=== PATIENT | male | born 2000 | race Caucasian/White ===

== ENCOUNTER 2024-03-07 15:20 | Outpatient (AMB) | payer OTHER, SELFPAY ==
--- NOTE | 2024-03-07 15:28 | MHC.PC.OV ---
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 Transferring care from [facility]. Medical records have been requested today. Manager Event Required: No Accompanied by: Self / Same As Patient Allergies No Known Allergies Allergy (Verified 03/07/24 15:37) Medication List - Last Reconciled 03/07/24 by Venkat Lawrence PA-C albuterol sulfate 90 mcg/actuation inhalation Tobacco use date assessed: 03/07/24 Dental Screening Dental Screen Date: 03/07/24 Did you have a dental visit in the last 12 months?: Yes Did you have a dental problem in the last 6 months where you did not have access to dental care?: No Was dental information given to patient?: Patient has dentist HPI COUNTY DIRECTOR/Sleep Apnea/Asthma HPI Details Patient is a 24-year-old male here today for a new patient visit. Patient's previous PCP was at [place] Patient has a past medical history significant for asthma and obesity. Concern--> he is concerned about having obstructive sleep apnea. He reports having daytime somnolence, chronic headaches and nighttime awakenings choking and difficulty breathing. He was been told he has apneic episodes during sleep. STOP BANG- questionnaire- moderate risk for obstructive sleep apnea. Also reports having random rash over his bilateral upper extremities that only seem to get worse when he is at work. Has tried [id number] antihistamines though have not been too effective. .. Asthma: Has been fairly well controlled with only p.r.n. use of his albuterol inhaler. Vaccines: Up-to-date with tetanus vaccine, COVID vaccines, Needs PCV. [facility] Social History (Updated 03/07/24 @ 15:44 by Venkat Lawrence PA-C) Housing: House Alcohol intake: current Alcohol intake frequency: holidays/special occasions only Alcohol type: beer Patient Tobacco Use Status: Never used Tobacco e-Cigarette/Vaping Use: Never Used service: No Current occupational status: employed Current occupation: [employer] Cognitive needs: No Hearing needs: No Vision needs: No Questionnaire PHQ-9 Over the last 2 weeks, how often have you been bothered by any of the following problems? 1. Little interest or pleasure in doing things: not at all 2. Feeling down, depressed, or hopeless: not at all 3. Trouble falling or staying asleep, or sleeping too much: not at all 4. Feeling tired or having little energy: not at all 5. Poor appetite or overeating: not at all 6. Feeling bad about yourself - or that you are a failure or have let yourself or your family down: not at all 7. Trouble concentrating on things, such as reading the newspaper or watching television: not at all 8. Moving or speaking so slowly that other people could have noticed. Or the opposite - being so fidgety or restless that you have been moving around a lot more than usual: not at all 9. Thoughts that you would be better off or of hurting yourself in some way: not at all Total score: 0 Depression Screening Interpretation: Negative Depression Screening Done: Yes 46944 - PHQ-9 Billing: Yes Source: Developed by Drs. Joaquin Lindsay, Adriana Jiang, Manoj Moreira and colleagues, with an educational rigo from [employer]. Thrive Questionnaire Date Thrive assessed: 03/07/24 I am a: Patient What is your living situation today?: I have a steady place to live Within the past 12 months, did the food you bought not last and you didn't have the money to get more?: Never true Within the past 12 months, did you worry whether your food would run out before you got money to buy more?: Never true Do you have trouble paying for medicines?: No Do you have trouble getting transportation to medical appointments?: No Do you have trouble paying your heating and electricity bill?: No Do you have trouble taking care of your child, family member or friend?: No Do you have trouble with day-to-day activities such as bathing, preparing meals, shopping, managing finances, etc.?: No Are you currently unemployed and looking for a job?: No Are you interested in more education?: No Please select the resources that you would like help with: None Currently or been in a relationship where the following occur: no concerns reported THRIVE Score: 0 AUDIT C Alcohol Use Questionnaire (AUDIT-C) 1. How often do you have a drink containing alcohol?: Monthly or less 2. How many drinks containing alcohol do you have on a typical day when you are drinking?: 1 or 2 3. How often do you have six or more drinks on one occasion?: Never Total Score: 1 MARCO-7 AMB Questionnaire MARCO-7 Date MARCO - 7 assessed: 03/07/24 Feeling nervous, anxious, or on edge: 0 = Not at all Not being able to stop or control worryin = Not at all Worrying too much about different things: 0 = Not at all Trouble relaxin = Not at all Being so restless that it is hard to sit still: 0 = Not at all Becoming easily annoyed or irritable: 0 = Not at all Feeling afraid as if something awful might happen: 0 = Not at all Total MARCO-7 score (0-4 normal; 5-9 mild; 10-14 moderate; 15-21 severe): 0 Source: Developed by Drs. Joaquin Lindsay, Adriana Jiang, Manoj Moreira and colleagues, with an educational rigo from [employer]. MARCO-7 Assessment Billing MARCO-7 Assessment Tool: MARCO-7 Assessment 13507 ACT Questionnaire In the past 4 weeks, how much of the time did your asthma keep you from getting as much done at work, school or at home?: None of the time During the past 4 weeks, how often have you had shortness of breath?: Not at all During the past 4 weeks, how often did your asthma symptoms wake you up at night or earlier than usual in the morning?: Not at all During the past 4 weeks, how often have you had to use your rescue inhaler or nebulizer medication?: Not at all How would you rate your asthma control during the past 4 weeks?: Completely controlled ACT Interpretation: Negative Score: 25 Review of Systems Const Denies headache(s) Eyes Denies loss of vision ENT Denies vertigo, Denies dizziness, Denies headache(s) and Denies sore throat Card Denies chest pain, Denies leg edema and Denies lightheadedness Resp Denies cough, Denies hemoptysis and Denies wheezing GI Denies abdominal pain, Denies melena, Denies constipation, Denies diarrhea and Denies vomiting Denies dysuria, Denies urinary frequency and Denies urinary urgency Musc Denies arthralgias, Denies joint swelling, Denies numbness and Denies tingling Neuro Denies Abnormal speech present, Denies behavioral changes, Denies vertigo, Denies dizziness, Denies headache(s), Denies loss of vision, Denies memory loss, Denies numbness and Denies tingling Psych Denies anxiety, Denies behavioral changes, Denies depression, Denies memory loss and Denies panic attacks Cristian/Lymph Denies easy bleeding and Denies easy bruising Aller/Immun Denies wheezing Physical exam (Primary Care) Vital Signs: Last Vital Signs Pulse 80 03/07/24 15:31 BP 120/82 03/07/24 15:31 Pulse Ox 98 03/07/24 15:31 Oxygen Delivery Method Room Air 03/07/24 15:31 BMI result Body Mass Index 32.3 Tobacco/Smoking Status: Tobacco use Status Tobacco use date assessed 03/07/24 03/07/24 15:37 Patient Tobacco Use Status Never used Tobacco 03/07/24 15:44 e-Cigarette/Vaping Use Never Used 03/07/24 15:44 PHQ-9: PHQ-9 Score PHQ-9: Total score 0 03/07/24 17:43 Depression Screening Interpretation: Negative Thrive Assessment: Date of Thrive Assessment Date Thrive assessed 03/07/24 03/07/24 15:37 Currently or been in a relationship where the following occur: no concerns reported Const General: healthy appearing, no acute distress, alert and awake Nutritional Appearance: well nourished Orientation/consciousness: oriented to person, oriented to place and oriented to time [facility] Ears: TM's normal bilaterally General nose exam: Normal nasal mucous membranes and turbinates present Eyes Conjunctivae: conjunctivae normal Sclerae: sclerae normal Pupils: Equal, round and reactive pupils present Neck Neck: Yes no lymphadenopathy and Yes no JVD Thyroid: Thyroid normal Carotids: no bruits Resp Effort & Inspection: normal respiratory effort and not tachypneic Auscultation: no crackles, no rales, no rhonchi and no wheezes Cardio Rate: regular rate Rhythm: regular rhythm Heart sounds: no murmurs and normal S1 and S2 GI Palpation (GI): Soft to palpation, nontender, no hepatomegaly and no splenomegaly Auscultation: normal bowel sounds Skin General skin exam: no rashes or lesions noted and dry skin Neuro General: oriented to person, oriented to place and oriented to time Cranial nerves: Yes Equal, round and reactive pupils present Speech: No Abnormal speech present Gait exam (Neuro): Normal gait present Motor exam (neuro): no tremor noted Extrem Right upper extremity: full ROM Left upper extremity: full ROM Right lower extremity: full ROM; no edema Left lower extremity: full ROM; no edema Psych Mental Status: mental status grossly normal Speech and movement: Normal speech and movement present Affect: normal affect Attitude: cooperative Thought process: Normal thought process present Immunizations pneumoc 20-paige conj-dip cr(PF) 0.5 mL IM syringe Performing Provider: Venkat Lwarence PA-C [facility] Administered by: TON Farah on 03/07/24 16:14 Dose Route Admin Location Dispensed Lot Number Expiration Date NDC [employer] 0.5 mL IM Left Deltoid 0.5 mL [id number] 01/27/25 6015-5663-06 [email or web address] VIS Given Date VIS Provided VIS Publication Date 03/07/24 Single Vaccine 22 Eligibility Eligibility Date Funding Source Not [facility] Eligible 03/07/24 Private Assessment and Plan Assessment & Plan (1) Asthma: Code(s): J45.909 - Unspecified asthma, uncomplicated Qualifiers: Asthma complication type: uncomplicated Asthma persistence: unspecified Asthma severity: mild Qualified Code(s): J45.909 - Unspecified asthma, uncomplicated Plan: Patient reports his asthma is fairly well controlled with only p.r.n. use of his albuterol inhaler. He denies any asthma exacerbations. (2) Right knee pain: Code(s): M25.561 - Pain in right knee Qualifiers: Chronicity: chronic Qualified Code(s): M25.561 - Pain in right knee; G89.29 - Other chronic pain Plan: Reports having a several year history of right knee pain worse when going up and downstairs. Pain is mostly located in the anterior aspect surrounding the patella. Concerns for patellofemoral syndrome here would likely benefit from physical therapy. He would like to get x-ray 1st. (3) MICHAEL (obstructive sleep apnea): Code(s): G47.33 - Obstructive sleep apnea (adult) (pediatric) Plan: He does report daytime somnolence, daytime headaches, nighttime awakenings with choking and apneic episodes. Does risk factors for obstructive sleep apnea. Physical exam shows 2+ tonsils beyond the anterior pillars. STOP BANG- questionnaire moderate risk for obstructive sleep apnea Will send for home sleep study to evaluate for obstructive sleep apnea. (4) Screening for diabetes mellitus (DM): Code(s): Z13.1 - Encounter for screening for diabetes mellitus (5) Obese: Code(s): E66.9 - Obesity, unspecified Qualifiers: Body mass index: BMI 32.0-32.9 Obesity classification: adult class 1 (BMI 30 - 34.9) Obesity type: due to excess calories Serious obesity comorbidity presence: without serious comorbidity Qualified Code(s): E66.09 - Other obesity due to excess calories; Z68.32 - Body mass index [BMI] 32.0-32.9, adult Plan: Patient does understand his BMI is over 30 will work on being more physically active and adapting to better eating habits to reduce his weight. Orders: Orders Comprehensive [place]. Panel Fast 03/07/24 Z13.1 - Encounter for screening for diabetes mellitus Resp Allergy Profile Region I 03/07/24 J45.909 - Unspecified asthma, uncomplicated, R05.9 - Cough, unspecified RT home sleep study 03/07/24 G47.33 - Obstructive sleep apnea (adult) (pediatric) Pneumococcal 20 Immunization 03/07/24 J45.909 - Unspecified asthma, uncomplicated, Z23 - Encounter for immunization XR knee RT 3V Today G89.29 - Other chronic pain, M25.561 - Pain in right knee Medications: New albuterol sulfate 90 mcg/actuation 2 puffs inhalation Q8H 30 days PRN 8.5 grams 3RF shortness of breath or wheezing J45.909 - Unspecified asthma, uncomplicated Coding Level of Care Code New Pt Level 4 (75678) Diagnoses Mild asthma without complication, unspecified whether persistent J45.909 Asthma complication type: uncomplicated Asthma persistence: unspecified Asthma severity: mild Chronic pain of right knee M25.561; G89.29 Chronicity: chronic MICHAEL (obstructive sleep apnea) G47.33 Screening for diabetes mellitus (DM) Z13.1 Class 1 obesity due to excess calories without serious comorbidity with body mass index (BMI) of 32.0 to 32.9 in adult E66.09; Z68.32 Body mass index: BMI 32.0-32.9 Obesity classification: adult class 1 (BMI 30 - 34.9) Obesity type: due to excess calories Serious obesity comorbidity presence: without serious comorbidity Additional Codes MARCO-7 Assessment Billing - MARCO-7 Assessment Tool: MARCO-7 Assessment 42270 ([id number])
[2024-03-07 15:31] VITALS: BP 120/82; PULSE 80; O2SAT 98; BMI 32.3
== END 2024-03-07 16:11 | disposition home or self-care (01) ==
PROVIDERS: PCP Physician Assistant; Visit Provider Physician Assistant
DX: Z23 Encounter for immunization (principal); J45.909 Unspecified asthma, uncomplicated
CPT/HCPCS: 90471; 90677; 99204

== ENCOUNTER 2024-04-01 11:44 | Outpatient (REF) | payer OTHER, SELFPAY ==
[2024-04-01 14:20] LABS: Alanine Aminotransferase 36 U/L (0-40); Albumin Level 4.6 g/dL (3.5-5.0); Alkaline Phosphatase 63 U/L (39-117); Anion Gap 16 (12-20); Aspartate Amino Transferase 20 U/L (5-37); Bilirubin Total 0.7 mg/dL (0.0-1.0); Blood Urea Nitrogen 15 mg/dL (9-16); Calcium 9.7 mg/dL (8.4-10.2); Carbon Dioxide 26 mmol/L (22-29); Chloride 103 mmol/L (96-108); Estimated Glomerular Filt Rate > 60; Glucose Fasting 94 mg/dL (60-99); Potassium 3.9 mmol/L (3.3-5.1); Sodium 141 mmol/L (135-145); Total Protein 7.8 g/dL (6.5-8.0)
== END 2024-04-01 11:45 | disposition home or self-care (01) ==
LOC: HO.HMGCLDS 11:44
PROVIDERS: PCP Physician Assistant; Visit Provider Physician Assistant
DX: Z13.1 Encounter for screening for diabetes mellitus (principal)
CPT/HCPCS: 36415; 80053

== ENCOUNTER → 2024-04-18 12:55 | Outpatient (REF) | payer OTHER, SELFPAY | LOC: HO.SL 12:55 | PROVIDERS: Visit Provider Physician Assistant | DX: G47.33 Obstructive sleep apnea (adult) (pediatric) (principal) | CPT/HCPCS: 95806 ==

== ENCOUNTER → 2024-04-18 13:14 | Outpatient (BNV) | payer OTHER, SELFPAY | PROVIDERS: Visit Provider Internal Medicine | DX: G47.33 Obstructive sleep apnea (adult) (pediatric) (principal) | CPT/HCPCS: 95806 ==

== ENCOUNTER 2024-06-13 13:45 | Outpatient (AMB) | payer OTHER, SELFPAY ==
[2024-06-13 13:57] VITALS: BP 120/82; PULSE 70; O2SAT 98; BMI 32.4
--- NOTE | 2024-06-13 13:57 | A.OFFPC_ITS ---
Vital Signs 06/13/24 13:57 Height 5 ft 5 in Weight 194 lb 8 oz BMI 32.4 BP 120/82 Blood Pressure Location Lt brachial Position Sitting Pulse 70 Pulse Source Pulse Oximeter Pulse Oximetry (%) 98 Oxygen Delivery Method Room Air Intake Visit Reasons: f/u Asthma Allergies No Known Allergies Allergy (Verified 06/13/24 14:02) Medication List - Last Reconciled 06/13/24 by Venkat Lawrence PA-C albuterol sulfate 90 mcg/actuation 2 puffs inhalation Q8H PRN 30 days Tobacco use date assessed: 03/07/24 Dental Screening Dental Screen Date: 03/07/24 HPI f/u Asthma HPI Details Patient is a 24-year-old male here today for follow-up visit Patient has a past medical history significant for asthma and obstructive sleep apnea, obesity. Concern--> continues to have nearly daily high formations over his arms and torso. Unclear etiology at this time. Will send for RAST allergen testing. Advised on starting antihistamine therapy on a daily basis Obstructive sleep apnea (mild)-> patient did undergo a sleep study which did show mild obstructive sleep apnea in the supine position and weight reduction. He is still interested in trying a CPAP machine at night for sleep as he still has some daytime somnolence. .. Asthma: Has been fairly well controlled with only p.r.n. use of his albuterol inhaler. [facility] Social History Housing: House Alcohol intake: current Alcohol intake frequency: holidays/special occasions only Alcohol type: beer Patient Tobacco Use Status: Never used Tobacco e-Cigarette/Vaping Use: Never Used service: No Current occupational status: employed Current occupation: [employer] Cognitive needs: No Hearing needs: No Vision needs: No Questionnaire Thrive Questionnaire Date Thrive assessed: 03/07/24 MARCO-7 AMB Questionnaire MARCO-7 Date MARCO - 7 assessed: 03/07/24 Source: Developed by Drs. Joaquin Lindsay, Adriana Jiang, Manoj oMreira and colleagues, with an educational rigo from [employer]. ACT Questionnaire In the past 4 weeks, how much of the time did your asthma keep you from getting as much done at work, school or at home?: None of the time During the past 4 weeks, how often have you had shortness of breath?: Not at all During the past 4 weeks, how often did your asthma symptoms wake you up at night or earlier than usual in the morning?: Not at all During the past 4 weeks, how often have you had to use your rescue inhaler or nebulizer medication?: Not at all How would you rate your asthma control during the past 4 weeks?: Completely controlled ACT Interpretation: Negative Score: 25 Review of Systems Const Denies headache(s) Eyes Denies loss of vision ENT Denies vertigo, Denies dizziness, Denies headache(s) and Denies sore throat Card Denies chest pain, Denies leg edema and Denies lightheadedness Resp Denies cough, Denies hemoptysis and Denies wheezing GI Denies abdominal pain, Denies melena, Denies constipation, Denies diarrhea and Denies vomiting Denies dysuria, Denies urinary frequency and Denies urinary urgency Musc Denies arthralgias, Denies joint swelling, Denies numbness and Denies tingling Neuro Denies Abnormal speech present, Denies behavioral changes, Denies vertigo, Denies dizziness, Denies headache(s), Denies loss of vision, Denies memory loss, Denies numbness and Denies tingling Psych Denies anxiety, Denies behavioral changes, Denies depression, Denies memory loss and Denies panic attacks Cristian/Lymph Denies easy bleeding and Denies easy bruising Aller/Immun Denies wheezing Physical exam (Primary Care) Vital Signs: Last Vital Signs Pulse 70 06/13/24 13:57 BP 120/82 06/13/24 13:57 Pulse Ox 98 06/13/24 13:57 Oxygen Delivery Method Room Air 06/13/24 13:57 BMI result Body Mass Index 32.4 Tobacco/Smoking Status: Tobacco use Status Tobacco use date assessed 03/07/24 06/13/24 13:58 Patient Tobacco Use Status Never used Tobacco 06/13/24 13:58 e-Cigarette/Vaping Use Never Used 06/13/24 13:58 Thrive Assessment: Date of Thrive Assessment Date Thrive assessed 03/07/24 06/13/24 13:58 Const General: healthy appearing, no acute distress, alert and awake Nutritional Appearance: well nourished Orientation/consciousness: oriented to person, oriented to place and oriented to time [facility] Ears: TM's normal bilaterally General nose exam: Normal nasal mucous membranes and turbinates present Eyes Conjunctivae: conjunctivae normal Sclerae: sclerae normal Pupils: Equal, round and reactive pupils present Neck Neck: Yes no lymphadenopathy and Yes no JVD Thyroid: Thyroid normal Carotids: no bruits Resp Effort & Inspection: normal respiratory effort and not tachypneic Auscultation: no crackles, no rales, no rhonchi and no wheezes Cardio Rate: regular rate Rhythm: regular rhythm Heart sounds: no murmurs and normal S1 and S2 GI Palpation (GI): Soft to palpation, nontender, no hepatomegaly and no splenomegaly Auscultation: normal bowel sounds Skin Other: NOTED HIVE FORMATIONS OVER HIS RIGHT FOREARM General skin exam: dry skin Rashes: rash noted and rashes noted Neuro General: oriented to person, oriented to place and oriented to time Cranial nerves: Yes Equal, round and reactive pupils present Speech: No Abnormal speech present Gait exam (Neuro): Normal gait present Motor exam (neuro): no tremor noted Extrem Right upper extremity: full ROM Left upper extremity: full ROM Right lower extremity: full ROM; no edema Left lower extremity: full ROM; no edema Psych Mental Status: mental status grossly normal Speech and movement: Normal speech and movement present Affect: normal affect Attitude: cooperative Thought process: Normal thought process present Assessment and Plan Assessment & Plan (1) Asthma: Code(s): J45.909 - Unspecified asthma, uncomplicated Qualifiers: Asthma severity: mild Asthma persistence: unspecified Asthma complication type: uncomplicated Qualified Code(s): J45.909 - Unspecified asthma, uncomplicated Plan: Patient reports his asthma has been very well controlled, has rarely had to use his albuterol inhaler. He denies any nighttime awakenings with asthma symptoms. (2) Allergies: Code(s): T78.40XA - Allergy, unspecified, initial encounter Qualifiers: Encounter type: subsequent encounter Qualified Code(s): T78.40XD - Allergy, unspecified, subsequent encounter Plan: Patient continues to have intermittent outbreaks of hives on his arms and torso. Will send for RAST allergen panel. Advised to start antihistamine therapy (Claritin or Zyrtec) on a daily basis. (3) MICHAEL (obstructive sleep apnea): Code(s): G47.33 - Obstructive sleep apnea (adult) (pediatric) Plan: Recent sleep study showing mild peripheral sleep apnea. Patient is willing to try a CPAP machine. Recommendations have been made to do positional therapy weight reduction. Orders: Orders Complete Blood Count no Diff Today Z13.1 - Encounter for screening for diabetes mellitus Rast Allergen Today T78.40XA - Allergy, unspecified, initial encounter Comprehensive [place]. Panel Fast Today Z13.1 - Encounter for screening for diabetes mellitus Medications: New CPAP (CPAP Machine/Device) Need for CPAP settings 6-12 cm H2O 1 ea 0RF G47.33 - Obstructive sleep apnea (adult) (pediatric) Coding Level of Care Code Est Pt Level 4 (68690) Diagnoses Mild asthma without complication, unspecified whether persistent J45.909 Asthma severity: mild Asthma persistence: unspecified Asthma complication type: uncomplicated Allergy, subsequent encounter T78.40XD Encounter type: subsequent encounter MICHAEL (obstructive sleep apnea) G47.33
== END 2024-06-13 14:21 | disposition home or self-care (01) ==
PROVIDERS: PCP Physician Assistant; Visit Provider Physician Assistant
DX: J45.909 Unspecified asthma, uncomplicated (principal); T78.40XD Allergy, unspecified, subsequent encounter; G47.33 Obstructive sleep apnea (adult) (pediatric)
CPT/HCPCS: 99214

== ENCOUNTER 2024-08-09 15:12 | Outpatient (REF) | payer OTHER, SELFPAY ==
[2024-08-10 04:32] LABS: Syphilis Screen Nonreactive (Nonreactive)
[2024-08-10 05:00] LABS: HBS Num1 0.54 mIU/mL (0-7.99); HBc Num1 0.09 S/CO (0.00-0.79); HBsAGNum1 0.29 S/CO (0.00-0.99); HIV AB/AG Nonreactive (Nonreactive); HIV Num 1 0.05 S/CO (0.00-0.99); Hepatitis B Core Antibody Nonreactive (Nonreactive); Hepatitis B Surface Antigen Negative (Negative); ~HepC Num1 0.11 S/CO (0.00-0.79); ~Hepatitis B Surface Antibody NONREACTIVE (Nonreactive); ~Hepatitis C Antibody Nonreactive (Nonreactive)
[2024-08-10 06:13] LABS: CT PCR NOT DETECTED (Not Detect.); NG PCR NOT DETECTED (Not Detect.)
[2024-08-10 21:33] LABS: Transglutaminase Ab IgG <1.0 U/mL; Transglutaminase IgA <1.0 U/mL
[2024-08-11 14:23] LABS: Herpes Simplex Type 2 IgG <0.90 index
[2024-08-16 01:29] LABS: Endomysial IgA Antibody Negative (Negative)
== END 2024-08-09 15:13 | disposition home or self-care (01) ==
LOC: HO.LAB 15:12
PROVIDERS: PCP Physician Assistant; Visit Provider Physician Assistant
DX: Z20.2 Contact with and (suspected) exposure to infections with a predominantly sexual mode of transmission (principal); R14.0 Abdominal distension (gaseous); Z11.3 Encounter for screening for infections with a predominantly sexual mode of transmission
CPT/HCPCS: 86231; 86364; 86695; 86696; 86704; 86706; 86780; 86803; 87340; 87389; 87491; 87591

== ENCOUNTER 2024-08-18 19:24 | Emergency (ER) | payer OTHER, SELFPAY ==
[2024-08-18 19:33] VITALS: BP 154/100; PULSE 96; RESP 20; TEMP 36.8; O2SAT 98; BMI 32.6
--- NOTE | 2024-08-18 19:53 | ED_ITS ---
HPI - Abdominal Pain General Chief Complaint: Abdominal Pain Stated Complaint: appendix pain Time Seen by Provider: 08/18/24 23:38 Source: patient Mode of arrival: ambulatory Limitations: no limitations History of Present Illness ED Provider: Dr. Mesa HPI narrative: 24 yo male with abdominal pain with N/V/D starting earlier today. He has no medical problems, no surgeries, states 2 weeks ago he was sick with URI and diarrhea while his girlfriend had COVID. Today had chills N/V/D. Was concerned that he was having appendicitis. Related Data Previous Rx's ?Medication ?Instructions ?Recorded albuterol sulfate 90 mcg/actuation 2 puff inhalation Q8H PRN 03/07/24 aerosol inhaler shortness of breath or wheezing 30 days #8.5 grams CPAP (CPAP Machine/Device) #1 ea 06/13/24 Allergies Allergy/AdvReac Type Severity Reaction Status Date / Time No Known Allergies Allergy Verified 08/18/24 19:39 Review of Systems Review of Systems Yes all other systems are reviewed and are negative Denies Sensory deficit (Neuro) [facility] Social History Social History Housing: House Alcohol intake: current Alcohol intake frequency: holidays/special occasions only Alcohol type: beer Patient Tobacco Use Status: Never used Tobacco e-Cigarette/Vaping Use: Never Used Advance Directives: No Advance Directives Information Provided: Yes Do you have a plan to hurt others: No Plan service: No Current occupational status: employed Current occupation: [employer]/ [employer] Cognitive needs: No Hearing needs: No Vision needs: No Physical Exam ED Vital Signs: Vital Signs - 24 hr 08/18/24 19:33 08/18/24 23:36 Temperature 98.3 F 99.4 F Pulse Rate 96 102 H Respiratory Rate 20 20 Blood Pressure 154/100 H 148/93 H Pulse Oximetry 98 97 Oxygen Delivery Method Room Air Room Air BMI result Body Mass Index 32.6 Const General: healthy appearing Nutritional Appearance: average body habitus Orientation/consciousness: oriented to person and patient oriented x3 Limitations: no limitations HENMT Head: Yes normal to inspection Ears: external ears normal General nose exam: Normal external nose present Mouth: Normal oral and palatal mucosa present and oropharynx normal Throat: Yes posterior oropharynx normal Eyes General: appearance normal, both eyes and all related structures Neck Neck: Yes normal visual inspection Chest Chest palpation & inspection: normal inspection of the chest Resp Auscultation: clear to auscultation bilaterally Cardio Jugular venous distension: no JVD Rate: regular rate Rhythm: regular rhythm Heart sounds: S1 normal heart sound present and S2 normal heart sound present GI Inspection: Yes normal to inspection Palpation (GI): Soft to palpation, nontender and No hepatosplenomegaly present Auscultation: normal bowel sounds General: Yes no CVA tenderness Back/Spine/Pelvis Back: no CVA tenderness Skin General skin exam: no rashes or lesions noted Neuro General: oriented to person and patient oriented x3 Cranial nerves: Yes CN's II-XII intact bilaterally Motor exam (neuro): 5/5 motor strength present throughout Sensory Exam: No Sensory deficit (Neuro) Extrem General: Yes normal to inspection Psych Appearance: grossly normal Course Course Course Narrative: This is a Rapid Medical Examination (RME) performed by Chris Haynes PA-C in triage. Full HPI, ROS, assessment and treatment plan per primary provider in the Main ED. 24 yo male hx of asthma here for eval of periumbilical abdominal pain radiating to left lower quadrant since 1500 today. States I am scared as my appendix . Admits to associated nausea, vomiting, dec appetite, and constipation, last BM yesterday. Denies history of abdominal surgeries. Reports taking Tums prior to arrival. No [id number] pain medications. + tender to palpation of left lower quadrant without rebound or guarding. Plan: labs, UA Reevaluation(s) Reevaluation #1: Patient is afebrile, normal labs, normal physical exam not consistent with appendicitis. Impression is viral gastroenteritis Time: 00:23 Medical Decision Making Differential Diagnosis Differential Diagnoses: The differential diagnosis associated with the presentation includes (appendicits, diverticulitis, viral gastroenteritis, UTI, renal colic) Admission/Observation Consideration of admission/observation: Escalation of care including admission/observation considered (upon arrival patient considered for admission) Lab Data 08/18/24 20:20 08/18/24 20:20 Labs: Lab Results 08/18/24 08/18/24 Range/Units 20:20 23:33 WBC 11.3 H (4.8-10.8) X10*3/uL RBC 5.06 (4.60-5.80) X10*6/uL Hgb 14.2 (14.0-18.0) g/dl Hct 40.6 L (42.0-52.0) % MCV 80.2 (80.0-98.0) fL MCH 28.1 (27.0-33.0) pg MCHC 35.0 (31.0-36.0) g/dl RDW 13.4 (11.0-16.0) % Plt Count 261 (160-400) X10*3/uL MPV 9.0 L (9.4-12.4) fL Immature Gran % (Auto) Cancelled Neut % (Auto) Cancelled Lymph % (Auto) Cancelled [place] % (Auto) Cancelled Eos % (Auto) Cancelled Baso % (Auto) Cancelled Lymph # (Auto) Cancelled [place] # (Auto) Cancelled Eos # (Auto) Cancelled Baso # (Auto) Cancelled Abs Immat Gran (auto) Cancelled Absolute Neuts (auto) Cancelled Absolute Nucleated RBC 0.000 (0.0-0.012) X10*3/uL Nucleated RBC % (auto) 0.0 (0.0-0.2) /100WBC Neutrophils % (Manual) 38 L (45-73) % Band Neutrophils % 8 H (3-5) % Lymphocytes % (Manual) 42 H (20-40) % Atypical Lymphs % (Man) 4 (0-6) % Monocytes % (Manual) 8 (2-11) % Abs Neuts (Manual) 5.2 (2.0-8.3) X10*3/uL Lymphocytes # (Manual) 4.7 (1.2-4.9) X10*3/uL Atyp Lymphs # (Manual) 0.5 x10*3/uL Monocytes # (Manual) 0.9 (0.1-1.2) X10*3/uL Platelet Estimate NORMAL (NORMAL) Plt Morphology Comment NORMAL RBC Morphology NORMAL Smear Tech's Comments MANUAL DIFF Sodium 138 (135-145) mmol/L Potassium 4.2 (3.3-5.1) mmol/L Chloride 108 (96-108) mmol/L Carbon Dioxide 22 (22-29) mmol/L Anion Gap 12 (12-20) BUN 17 H (9-16) mg/dL Creatinine 1.36 (0.5-1.4) mg/dL Estim Creat Clear Calc 84.3 Estimated GFR > 60 Random Glucose 100 (60-115) mg/dL Calcium 9.4 (8.4-10.2) mg/dL Magnesium 2.6 (1.6-2.6) mg/dL Total Bilirubin 0.4 (0.0-1.0) mg/dL AST 40 H (5-37) U/L ALT 45 H (0-40) U/L Alkaline Phosphatase 73 (39-117) U/L C-Reactive Protein 1.12 H (< or = 0.50) mg/dL Total Protein 7.4 (6.5-8.0) g/dL Albumin 4.2 (3.5-5.0) g/dL Lipase 16 (8-78) U/L Urine Color Yellow Urine Appearance Clear Urine pH 5.5 (5.0-9.0) Ur Specific [place] <= 1.005 (1.005-1.025) Urine Protein Negative (Neg-Trace) mg/dL Urine Glucose (UA) Negative (Negative) mg/dL Urine Ketones Negative (Negative) mg/dL Urine Blood Trace H (Negative) Urine Nitrite Negative (Negative) Ur Leukocyte Esterase Negative (Negative) Urine RBC 0-2 (0-2) /HPF Urine WBC 0-5 (0-5) /HPF Ur Squamous Epith Cells 0-2 (0-2) /HPF Urine Bacteria None Seen (None Seen) Hyaline Casts 3-5 (0-2) /LPF Tests considered The following testing was considered but not selected: I considered a CT of abd/pelvis. However, no elevated WBC, normal UA, nonfocal abdominal exam Prescription Management I considered prescription management with: Antibiotic (no evidence of bacterial infection) Medications Administered Discontinued Medications Generic Name Dose Route Start Last Admin Trade Name Freq PRN Reason Stop Dose Admin Ibuprofen 800 mg 08/18/24 23:43 08/18/24 23:49 Ibuprofen 800 Mg Tablet PO 08/18/24 23:44 800 mg ONCE ONE Administration Discharge Plan Discharge Clinical Impression: Viral gastroenteritis Patient Disposition: Home, Self-Care Instructions: Acute Nausea and Vomiting (ED), Acute Diarrhea (ED), Viral Syndrome (ED) Prescriptions: No Action albuterol sulfate 90 mcg/actuation HFA aerosol inhaler 2 puff inhalation Q8H PRN (Reason: shortness of breath or wheezing) 30 Days Qty: 8.5 3RF (DME) CPAP Machine/Device Device See Rx Instructions .Route Qty: 1 0RF Rx Instructions: Need for CPAP settings 6-12 cm H2O Referrals: Venkat Lawrence PA-C [Primary Care Provider] - 1 week Print Language: Lao
[2024-08-18 20:32] LABS: Hematocrit 40.6 % (42.0-52.0); Hemoglobin 14.2 g/dl (14.0-18.0); Mean Corpuscular Hemoglobin 28.1 pg (27.0-33.0); Mean Corpuscular Volume 80.2 fL (80.0-98.0); Platelet Count 261 X10*3/uL (160-400); Red Blood Count 5.06 X10*6/uL (4.60-5.80); Red Cell Distribution Width 13.4 % (11.0-16.0); White Blood Count 11.3 X10*3/uL (4.8-10.8)
[2024-08-18 20:50] LABS: Alanine Aminotransferase 45 U/L (0-40); Albumin Level 4.2 g/dL (3.5-5.0); Alkaline Phosphatase 73 U/L (39-117); Anion Gap 12 (12-20); Aspartate Amino Transferase 40 U/L (5-37); Bilirubin Total 0.4 mg/dL (0.0-1.0); Blood Urea Nitrogen 17 mg/dL (9-16); C Reactive Protein 1.12 mg/dL (< or = 0.50); Calcium 9.4 mg/dL (8.4-10.2); Carbon Dioxide 22 mmol/L (22-29); Chloride 108 mmol/L (96-108); Creatinine Clr Calc Pharmacy 84.3; Estimated Glomerular Filt Rate > 60; Glucose Random 100 mg/dL (60-115); Lipase 16 U/L (8-78); Magnesium 2.6 mg/dL (1.6-2.6); Potassium 4.2 mmol/L (3.3-5.1); Sodium 138 mmol/L (135-145); Total Protein 7.4 g/dL (6.5-8.0)
[2024-08-18 21:40] LABS: SLIDE REVIEW MANUAL DIFF
[2024-08-18 21:49] LABS: Atypical Lymph Absolute Manual 0.5 x10*3/uL; Atypical Lymphs Percent Manual 4 % (0-6); Band Neutrophils Percent 8 % (3-5); Lymphocytes Absolute Manual 4.7 X10*3/uL (1.2-4.9); Lymphocytes Percent Manual 42 % (20-40); Monocytes Absolute Manual 0.9 X10*3/uL (0.1-1.2); Monocytes Percent Manual 8 % (2-11); Neutrophils Absolute Manual 5.2 X10*3/uL (2.0-8.3); Neutrophils Percent Manual 38 % (45-73)
[2024-08-18 21:52] LABS: Platelet Estimate NORMAL (NORMAL); Platelet Morphology Comment NORMAL; RBC Morphology NORMAL
[2024-08-18 23:36] VITALS: BP 148/93; PULSE 102; RESP 20; TEMP 37.4; O2SAT 97
--- NOTE | 2024-08-18 23:39 | MHC.EDTECH ---
Patient urine samp-le collected and sent to lab .
[2024-08-18 23:43] LABS: Appearance Urine Clear; Color Urine Yellow; Glucose Urine UA Negative (Negative); Leukocyte Esterase Urine Negative (Negative); Nitrite Urine Negative (Negative); PH 5.5 (5.0-9.0); Specific Gravity - Urine <= 1.005 (1.005-1.025); UMIC TRIGGER UACC YES; Urine Blood Trace (Negative); Urine Ketones Negative (Negative); Urine Protein Negative (Neg-Trace)
[2024-08-18] MEDS: Ibuprofen 800 MG TABLET PO (23:49)
[2024-08-18 23:57] LABS: Bacteria Urine None Seen (None Seen); RBC Urine 0-2 /HPF (0-2); Squamous Epithelial Cell Urine 0-2 /HPF (0-2); WBC Urine 0-5 /HPF (0-5)
[2024-08-19 01:41] VITALS: BP 148/93; PULSE 102; RESP 20; TEMP 37.4; O2SAT 97
== END 2024-08-19 00:40 | disposition home or self-care (01) ==
PROVIDERS: Physician Assistant Medical; Emergency Provider Emergency Medicine; PCP Physician Assistant
DX: A08.4 Viral intestinal infection, unspecified (principal); R11.2 Nausea with vomiting, unspecified; R10.32 Left lower quadrant pain; Z79.899 Other long term (current) drug therapy
CPT/HCPCS: 36415; 80053; 81001; 83690; 83735; 85007; 85025; 85027; 86140; 99283; 99284

== ENCOUNTER 2024-11-28 10:26 | Outpatient (AMB) | payer OTHER, SELFPAY ==
[2024-11-28 10:33] VITALS: BP 124/92; PULSE 79; O2SAT 99; BMI 31.8
--- NOTE | 2024-11-28 10:33 | MHC.PC.OV ---
Vital Signs 11/28/24 10:33 Height 5 ft 5 in Weight 191 lb 2 oz BMI 31.8 BP 124/92 H Blood Pressure Location Lt brachial Position Sitting Pulse 79 Pulse Source Pulse Oximeter Pulse Oximetry (%) 99 Oxygen Delivery Method Room Air Intake Visit Reasons: follow up Hairpiece Stylist Required: No Accompanied by: Self / Same As Patient Allergies No Known Allergies Allergy (Verified 11/28/24 10:34) Medication List - Last Reconciled 11/28/24 by Venkat Lawrence PA-C albuterol sulfate 90 mcg/actuation 2 puffs inhalation Q8H PRN 30 days CPAP (CPAP Machine/Device) Need for CPAP settings 6-12 cm H2O naproxen (Naprosyn) 500 mg PO BID Tobacco use date assessed: 03/07/24 Dental Screening Dental Screen Date: 03/07/24 HPI follow up HPI Details Patient is a 24-year-old male here today for follow-up visit Patient has a past medical history significant for asthma and obstructive sleep apnea, obesity. Concern--> patient has experienced a sensation of ear fullness and difficulty hearing. Although hearing has improved, the plugged sensation persists, particularly in the left ear. Obstructive sleep apnea (mild)-> , the patient reports not receiving a CPAP machine despite prior recommendations following a sleep study in March 2024, which confirmed mild obstructive sleep apnea. The patient reports increased symptoms, expressing the condition feels worse and contributing to fatigue. .. Asthma: The patient reports that asthma has been managed but experiences significant shortness of breath when attempting to jog, describing severe breathlessness after 30 seconds of activity. Exacerbations with wheezing occur, though no exacerbations at rest were reported. Asthma management has previously included the use of a rescue inhaler. [facility] Social History Housing: House Alcohol intake: never Patient Tobacco Use Status: Never used Tobacco e-Cigarette/Vaping Use: Never Used service: No Current occupational status: employed Current occupation: [employer]/ [employer] Cognitive needs: No Hearing needs: No Vision needs: No Questionnaire PHQ-9 Over the last 2 weeks, how often have you been bothered by any of the following problems? 1. Little interest or pleasure in doing things: not at all 2. Feeling down, depressed, or hopeless: not at all 3. Trouble falling or staying asleep, or sleeping too much: not at all 4. Feeling tired or having little energy: not at all 5. Poor appetite or overeating: not at all 6. Feeling bad about yourself - or that you are a failure or have let yourself or your family down: not at all 7. Trouble concentrating on things, such as reading the newspaper or watching television: not at all 8. Moving or speaking so slowly that other people could have noticed. Or the opposite - being so fidgety or restless that you have been moving around a lot more than usual: not at all 9. Thoughts that you would be better off or of hurting yourself in some way: not at all Total score: 0 Depression Screening Interpretation: Negative Depression Screening Done: Yes 02435 - PHQ-9 Billing: Yes Source: Developed by Drs. Joaquin Lindsay, Adriana Jiang, Manoj Moreira and colleagues, with an educational rigo from [employer]. Thrive Questionnaire Date Thrive assessed: 11/28/24 I am a: Patient What is your living situation today?: I have a steady place to live Within the past 12 months, did the food you bought not last and you didn't have the money to get more?: Never true Within the past 12 months, did you worry whether your food would run out before you got money to buy more?: Never true Do you have trouble paying for medicines?: No Do you have trouble getting transportation to medical appointments?: No Do you have trouble paying your heating and electricity bill?: No Do you have trouble taking care of your child, family member or friend?: No Do you have trouble with day-to-day activities such as bathing, preparing meals, shopping, managing finances, etc.?: No Are you currently unemployed and looking for a job?: No Are you interested in more education?: No Please select the resources that you would like help with: None Currently or been in a relationship where the following occur: No concerns reported THRIVE Score: 0 AUDIT C Alcohol Use Questionnaire (AUDIT-C) 1. How often do you have a drink containing alcohol?: Monthly or less 2. How many drinks containing alcohol do you have on a typical day when you are drinking?: 1 or 2 3. How often do you have six or more drinks on one occasion?: Never Total Score: 1 MARCO-7 AMB Questionnaire MARCO-7 Date MARCO - 7 assessed: 03/07/24 Source: Developed by Drs. Joaquin Lindsay, Adriana Jiang, Manoj Moreira and colleagues, with an educational rigo from [employer]. Review of Systems Const Reports fatigue, Denies headache(s), Reports lethargy and Reports malaise Eyes Denies loss of vision ENT Denies vertigo, Denies dizziness, Denies headache(s) and Denies sore throat Card Denies chest pain, Denies leg edema, Denies lightheadedness and Reports dyspnea on exertion Resp Denies cough, Denies hemoptysis, Reports dyspnea on exertion and Denies wheezing GI Denies abdominal pain, Denies melena, Denies constipation, Denies diarrhea and Denies vomiting Denies dysuria, Denies urinary frequency and Denies urinary urgency Musc Denies arthralgias, Denies joint swelling, Denies numbness and Denies tingling Neuro Denies Abnormal speech present, Denies behavioral changes, Denies vertigo, Denies dizziness, Denies headache(s), Denies loss of vision, Denies memory loss, Denies numbness and Denies tingling Psych Denies anxiety, Denies behavioral changes, Denies depression, Denies memory loss and Denies panic attacks Endo Reports fatigue Cristian/Lymph Denies easy bleeding and Denies easy bruising Aller/Immun Denies wheezing Physical exam (Primary Care) Vital Signs: Last Vital Signs Pulse 79 11/28/24 10:33 BP 124/92 H 11/28/24 10:33 Pulse Ox 99 11/28/24 10:33 Oxygen Delivery Method Room Air 11/28/24 10:33 BMI result Body Mass Index 31.8 Tobacco/Smoking Status: Tobacco use Status Tobacco use date assessed 03/07/24 06/13/24 13:58 Patient Tobacco Use Status Never used Tobacco 08/19/24 00:00 e-Cigarette/Vaping Use Never Used 06/13/24 13:58 Depression Screening Interpretation: Negative Thrive Assessment: Date of Thrive Assessment Date Thrive assessed 03/07/24 06/13/24 13:58 Currently or been in a relationship where the following occur: No concerns reported Const General: healthy appearing, no acute distress, alert and awake Nutritional Appearance: well nourished Orientation/consciousness: oriented to person, oriented to place and oriented to time HENMT Other: LEFT EXTERNAL EAR CANAL SLIGHTLY ERYTHEMATOUS AND EDEMATOUS. Ears: TM's normal bilaterally General nose exam: Normal nasal mucous membranes and turbinates present Eyes Conjunctivae: conjunctivae normal Sclerae: sclerae normal Pupils: Equal, round and reactive pupils present Neck Neck: Yes no lymphadenopathy and Yes no JVD Thyroid: Thyroid normal Carotids: no bruits Resp Effort & Inspection: normal respiratory effort and not tachypneic Auscultation: no crackles, no rales, no rhonchi and no wheezes Cardio Rate: regular rate Rhythm: regular rhythm Heart sounds: no murmurs and normal S1 and S2 GI Palpation (GI): Soft to palpation, nontender, no hepatomegaly and no splenomegaly Auscultation: normal bowel sounds Skin General skin exam: no rashes or lesions noted and dry skin Neuro General: oriented to person, oriented to place and oriented to time Cranial nerves: Yes Equal, round and reactive pupils present Speech: No Abnormal speech present Gait exam (Neuro): Normal gait present Motor exam (neuro): no tremor noted Extrem Right upper extremity: full ROM Left upper extremity: full ROM Right lower extremity: full ROM; no edema Left lower extremity: full ROM; no edema Psych Mental Status: mental status grossly normal Speech and movement: Normal speech and movement present Affect: normal affect Attitude: cooperative Thought process: Normal thought process present Coding Level of Care Code Est Pt Level 4 (88178) Diagnoses Mild asthma without complication, unspecified whether persistent J45.909 Asthma severity: mild Asthma persistence: unspecified Asthma complication type: uncomplicated Low libido R68.82 Elevated blood pressure reading R03.0 Chronic diffuse otitis externa of left ear H60.312 Otitis externa type: diffuse Chronicity: chronic MICHAEL (obstructive sleep apnea) G47.33 Additional Codes PHQ-9 - 02225 - PHQ-9 Billing: Yes ([id number]) Assessment & Plan Assessment & Plan (1) Asthma: Code(s): J45.909 - Unspecified asthma, uncomplicated Category: Medical Qualifiers: Asthma severity: mild Asthma persistence: unspecified Asthma complication type: uncomplicated Qualified Code(s): J45.909 - Unspecified asthma, uncomplicated Plan: Patient's asthma seems not to be well controlled. Will step up therapy to a maintenance inhaler to use twice a day to see if asthma symptoms do get better. We have considered starting allergy medication (montelukast) as well (2) Low libido: Code(s): R68.82 - Decreased libido Category: Medical Plan: Patient concerned about his testosterone as he reports low libido, energy ectt. (3) Elevated blood pressure reading: Code(s): R03.0 - Elevated blood-pressure reading, without diagnosis of hypertension Category: Medical Plan: Noted slightly elevated blood pressure reading today in office. Discussed possible benefits of weight loss and diet modifications on blood pressure. - Suggested avoidance of high salt and caffeine intake. (4) Left otitis externa: Code(s): H60.92 - Unspecified otitis externa, left ear Category: Medical Qualifiers: Otitis externa type: diffuse Chronicity: chronic Qualified Code(s): H60.312 - Diffuse otitis externa, left ear Plan: Noted slightly an edematous left ear canal. Will supply patient with ear drops. (5) MICHAEL (obstructive sleep apnea): Code(s): G47.33 - Obstructive sleep apnea (adult) (pediatric) Category: Medical Plan: reviewed the patient's mild obstructive sleep apnea results from earlier this year and agreed on the potential benefits of initiating CPAP treatment. Orders: Orders Testosterone, Free/Total Today R68.82 - Decreased libido Comprehensive Lorimor. Panel Fast Today Z13.1 - Encounter for screening for diabetes mellitus Complete Blood Count no Diff Today Z13.1 - Encounter for screening for diabetes mellitus Medications: New ciprofloxacin-dexamethasone 0.3-0.1 % 4 drps otic (ears) BID 7 days 7.5 mL 0RF H60.312 - Diffuse otitis externa, left ear fluticasone propion-salmeterol 115-21 mcg/actuation (Advair HFA) 2 puffs inhalation BID 30 days 12 grams 3RF J45.909 - Unspecified asthma, uncomplicated Refilled CPAP (CPAP Machine/Device) Need for CPAP settings 6-12 cm H2O 1 ea 0RF G47.33 - Obstructive sleep apnea (adult) (pediatric) albuterol sulfate 90 mcg/actuation 2 puffs inhalation Q8H 30 days PRN 8.5 grams 3RF shortness of breath or wheezing J45.909 - Unspecified asthma, uncomplicated
== END 2024-11-28 10:52 | disposition home or self-care (01) ==
PROVIDERS: PCP Physician Assistant; Visit Provider Physician Assistant
DX: J45.909 Unspecified asthma, uncomplicated (principal); R68.82 Decreased libido; R03.0 Elevated blood-pressure reading, without diagnosis of hypertension; H60.312 Diffuse otitis externa, left ear; G47.33 Obstructive sleep apnea (adult) (pediatric)

== ENCOUNTER → 2024-11-28 10:26 | Outpatient (BNVA) | payer OTHER, SELFPAY | PROVIDERS: PCP Physician Assistant; Visit Provider Physician Assistant | DX: J45.909 Unspecified asthma, uncomplicated (principal); R68.82 Decreased libido; R03.0 Elevated blood-pressure reading, without diagnosis of hypertension; H60.312 Diffuse otitis externa, left ear; G47.33 Obstructive sleep apnea (adult) (pediatric) | CPT/HCPCS: 96127 ==

== ENCOUNTER 2025-03-14 15:28 | Outpatient (AMB) | payer OTHER, SELFPAY ==
[2025-03-14 16:09] VITALS: BP 132/78; PULSE 100; TEMP 36.2; O2SAT 97; BMI 31.9
--- NOTE | 2025-03-14 16:09 | A.OFFPC_ITS ---
Vital Signs 03/14/25 16:09 Height 5 ft 5 in Weight 192 lb BMI 31.9 BP 132/78 Blood Pressure Location Lt brachial Position Sitting Pulse 100 Pulse Source Pulse Oximeter Temp 97.1 F Temp Source Temporal Artery Scan Pulse Oximetry (%) 97 Oxygen Delivery Method Room Air Intake Visit Reasons: annual exam Watch Leader Required: No Accompanied by: Self / Same As Patient Allergies No Known Allergies Allergy (Verified 03/14/25 16:14) Medication List - Last Reconciled 03/14/25 by Venkat Lawrence PA-C albuterol sulfate 90 mcg/actuation 2 puffs inhalation Q8H PRN 30 days ciprofloxacin-dexamethasone 0.3-0.1 % 4 drps otic (ears) BID 7 days CPAP (CPAP Machine/Device) Need for CPAP settings 6-12 cm H2O- full mask type fluticasone propion-salmeterol 250-50 mcg/dose (Wixela Inhub) 1 inh inhalation BID 30 days naproxen (Naprosyn) 500 mg PO BID Tobacco use date assessed: 03/14/25 Dental Screening Dental Screen Date: 03/14/25 Did you have a dental visit in the last 12 months?: Yes Did you have a dental problem in the last 6 months where you did not have access to dental care?: No Was dental information given to patient?: Patient has dentist HPI annual exam HPI Details Patient is a 25-year-old male here today for Routine annual physical Patient has a past medical history significant for asthma and obstructive sleep apnea, obesity. Obstructive sleep apnea (mild)-> Sleep study in March 2024, which confirmed mild obstructive sleep apnea. He has started CPAP machine on nightly basis and reports good sleep and feeling better in the morning. . Class 1 obesity: Does note his BMI is at 32, he will work on dietary and lifestyle modifications to reduce his weight. .. Asthma: Reports his asthma has been fairly well controlled with p.r.n. use of his albuterol inhaler and daily use of his Wixela maintenance inhaler. vaccine: utd with all vaccine [facility] Medical History (Updated 03/14/25 @ 16:34 by Venkat Lawrence PA-C) Low libido Social History (Updated 03/14/25 @ 16:21 by Venkat Lawrence PA-C) Housing: House Alcohol intake: never Patient Tobacco Use Status: Never used Tobacco e-Cigarette/Vaping Use: Never Used service: No Current occupational status: employed Current occupation: [employer] Cognitive needs: No Hearing needs: No Vision needs: No Questionnaire PHQ-9 Over the last 2 weeks, how often have you been bothered by any of the following problems? 1. Little interest or pleasure in doing things: several days 2. Feeling down, depressed, or hopeless: not at all 3. Trouble falling or staying asleep, or sleeping too much: nearly every day 4. Feeling tired or having little energy: nearly every day 5. Poor appetite or overeating: not at all 6. Feeling bad about yourself - or that you are a failure or have let yourself or your family down: not at all 7. Trouble concentrating on things, such as reading the newspaper or watching television: several days 8. Moving or speaking so slowly that other people could have noticed. Or the opposite - being so fidgety or restless that you have been moving around a lot more than usual: not at all 9. Thoughts that you would be better off or of hurting yourself in some way: not at all Total score: 8 Depression Screening Interpretation: Positive Depression Screening Follow-up: Existing condition Depression Screening Done: Yes 87990 - PHQ-9 Billing: Yes Source: Developed by Drs. Joaquin Lindsay, Adriana Jiang, Manoj Moreira and colleagues, with an educational rigo from [employer]. Thrive Questionnaire Date Thrive assessed: 03/14/25 I am a: Patient What is your living situation today?: I have a steady place to live Within the past 12 months, did the food you bought not last and you didn't have the money to get more?: I choose not to answer this question Within the past 12 months, did you worry whether your food would run out before you got money to buy more?: I choose not to answer this question Do you have trouble paying for medicines?: Yes Do you have trouble getting transportation to medical appointments?: No Do you have trouble paying your heating and electricity bill?: I choose not to answer this question Do you have trouble taking care of your child, family member or friend?: I choose not to answer this question Do you have trouble with day-to-day activities such as bathing, preparing meals, shopping, managing finances, etc.?: I choose not to answer this question Are you currently unemployed and looking for a job?: No Are you interested in more education?: Yes Please select the resources that you would like help with: None Currently or been in a relationship where the following occur: No concerns reported THRIVE Score: 0 AUDIT C Alcohol Use Questionnaire (AUDIT-C) 1. How often do you have a drink containing alcohol?: Monthly or less 2. How many drinks containing alcohol do you have on a typical day when you are drinking?: 1 or 2 3. How often do you have six or more drinks on one occasion?: Never Total Score: 1 MARCO-7 AMB Questionnaire MARCO-7 Date MARCO - 7 assessed: 03/14/25 Feeling nervous, anxious, or on edge: 1 = Several days Not being able to stop or control worryin = Several days Worrying too much about different things: 1 = Several days Trouble relaxin = Several days Being so restless that it is hard to sit still: 1 = Several days Becoming easily annoyed or irritable: 1 = Several days Feeling afraid as if something awful might happen: 0 = Not at all Total MARCO-7 score (0-4 normal; 5-9 mild; 10-14 moderate; 15-21 severe): 6 Source: Developed by Drs. Joaquin Lindsay, Adriana Jiang, Manoj Moreira and colleagues, with an educational rigo from [employer]. MARCO-7 Assessment Billing MARCO-7 Assessment Tool: MARCO-7 Assessment 40181 ACT Questionnaire In the past 4 weeks, how much of the time did your asthma keep you from getting as much done at work, school or at home?: None of the time During the past 4 weeks, how often have you had shortness of breath?: Not at all During the past 4 weeks, how often did your asthma symptoms wake you up at night or earlier than usual in the morning?: Not at all During the past 4 weeks, how often have you had to use your rescue inhaler or nebulizer medication?: Not at all How would you rate your asthma control during the past 4 weeks?: Completely controlled ACT Interpretation: Negative Score: 25 Review of Systems Const Denies body aches, Denies chills, Denies excessive sweating, Denies fatigue, Denies fever(s) and Denies headache(s) Eyes Denies blurry vision ENT Denies dysphagia, Denies vertigo, Denies dizziness, Denies headache(s), Denies hearing loss and Denies tinnitus Card Denies chest pain, Denies chest pain with activity, Denies syncope, Denies irregular heart rhythm and Denies dyspnea Resp Denies chest congestion, Denies cough, Denies hemoptysis, Denies dyspnea and Denies wheezing GI Denies abdominal pain, Denies melena, Denies hematochezia, Denies coffee ground emesis, Denies dysphagia, Denies diarrhea, Denies nausea and Denies vomiting Denies difficulty urinating, Denies dysuria, Denies urinary frequency, Denies ur inary hesitancy and Denies urinary urgency Musc Denies arthralgias, Denies limited range of motion, Denies muscle cramps and Denies muscle weakness Skin/Breast Denies rash and Denies skin ulcer Neuro Denies Abnormal speech present, Denies confusion, Denies vertigo, Denies dizziness, Denies syncope, Denies headache(s), Denies memory loss and Denies seizure-like activity Psych Denies anxiety, Denies confusion, Denies depression, Denies memory loss, Denies panic attacks and Denies paranoia Endo Denies excessive sweating, Denies fatigue, Denies flushing, Denies polydipsia and Denies polyuria Cristian/Lymph Denies easy bleeding and Denies easy bruising Aller/Immun Denies wheezing Physical exam (Primary Care) Vital Signs: Last Vital Signs Temp 97.1 F 03/14/25 16:09 Pulse 100 03/14/25 16:09 BP 132/78 03/14/25 16:09 Pulse Ox 97 03/14/25 16:09 Oxygen Delivery Method Room Air 03/14/25 16:09 BMI result Body Mass Index 32.0 Tobacco/Smoking Status: Tobacco use Status Tobacco use date assessed 03/14/25 03/14/25 16:10 Patient Tobacco Use Status Never used Tobacco 03/14/25 16:10 e-Cigarette/Vaping Use Never Used 03/14/25 16:10 PHQ-9: PHQ-9 Score PHQ-9: Total score 8 03/14/25 16:10 Depression Screening Interpretation: Positive Depression Screening Follow-up: Existing condition Thrive Assessment: Date of Thrive Assessment Date Thrive assessed 03/14/25 03/14/25 16:10 Currently or been in a relationship where the following occur: No concerns reported Const General: cooperative, comfortable, no acute distress, alert and awake; No confusion Nutritional Appearance: well nourished Orientation/consciousness: oriented to person, oriented to place, patient oriented x3 and No confusion HENMT Head: Yes normocephalic Ears: external ears normal and TM's normal bilaterally General nose exam: Normal nasal mucous membranes and turbinates present Face and sinus: No sinus tenderness Mouth: Normal oral and palatal mucosa present and tongue normal Teeth and gingiva: dentition normal and gingiva normal Throat: Yes posterior oropharynx normal, Yes tonsils normal and Yes uvula midline Eyes Conjunctivae: conjunctivae normal Sclerae: sclerae normal Pupils: Equal, round and reactive pupils present EOM: EOMs intact bilaterally Direct Ophthalmoscopy: No no photophobia Neck Neck: Yes no lymphadenopathy, No tender and Yes no JVD Thyroid: Thyroid normal Carotids: no bruits Chest Chest palpation & inspection: no tenderness Resp Effort & Inspection: normal respiratory effort, no audible wheezes, not labored and no stridor Auscultation: no crackles, no rales, no rhonchi and no wheezes Cardio Jugular venous distension: no JVD Rate: regular rate, not bradycardic and not tachycardic Rhythm: regular rhythm Heart sounds: no murmurs and normal S1 and S2 Bruits: no carotid bruits Peripheral pulses: Peripheral pulses 2+ throughout GI Inspection: Yes normal to inspection, No abdominal wall ecchymosis and No visible herniation Palpation (GI): Soft to palpation, nontender, no guarding, not rigid and No hepatosplenomegaly present Auscultation: normoactive bowel sounds General: Yes no CVA tenderness Back/Spine/Pelvis Back: no CVA tenderness and No back tenderness Cervical Spine: cervical ROM normal Thoracic/Lumbar Spine: thoracic and lumbar spine normal to inspection, straight leg raise negative bilaterally, No thoraco-lumbar ROM limited and No lumbar spinal tenderness Skin General skin exam: no rashes or lesions noted and dry skin Lesions: no lesions Rashes: no rashes Wounds: no wounds Neuro General: oriented to person, oriented to place, patient oriented x3, CN's II-XI intact bilaterally and No confusion Cranial nerves: Yes Equal, round and reactive pupils present and Yes Normal accommodation reflex present Cognition (Neuro): normal cognition Speech: No Abnormal speech present Gait exam (Neuro): Normal gait present Motor exam (neuro): 5/5 motor strength present throughout Extrem Right upper extremity: full ROM; no cyanosis Left upper extremity: full ROM; no cyanosis Right lower extremity: no edema Left lower extremity: no edema Psych Appearance: grossly normal Mental Status: mental status grossly normal Speech and movement: Normal speech and movement present Affect: normal affect Attitude: cooperative Thought process: Normal thought process present Coding Level of Care Code Est Pt Level 4 (86607) Diagnoses MICHAEL (obstructive sleep apnea) G47.33 Mild asthma without complication, unspecified whether persistent J45.909 Asthma severity: mild Asthma persistence: unspecified Asthma complication type: uncomplicated Class 1 obesity E66.811 Additional Codes MARCO-7 Assessment Billing - MARCO-7 Assessment Tool: MARCO-7 Assessment 51341 ([id number]) PHQ-9 - 71914 - PHQ-9 Billing: Yes ([id number]) Asthma Control Questionnaire - ACT Interpretation: Negative ([id number]) Assessment & Plan Assessment & Plan (1) MICHAEL (obstructive sleep apnea): Code(s): G47.33 - Obstructive sleep apnea (adult) (pediatric) Category: Medical Plan: CPAP machine usage is essential for managing the patient's obstructive sleep apnea, with a focus on obtaining a compliance report for insurance. Continued usage will improve sleep quality and reduce related health risks. (2) Asthma: Code(s): J45.909 - Unspecified asthma, uncomplicated Category: Medical Qualifiers: Asthma severity: mild Asthma persistence: unspecified Asthma complication type: uncomplicated Qualified Code(s): J45.909 - Unspecified asthma, uncomplicated Plan: Patient reports his asthma is fairly well controlled with p.r.n. use of his albuterol inhaler and daily use of his Wixela. He denies any nighttime raeann kenings with asthma symptoms or recent asthma exacerbations. (3) Class 1 obesity: Code(s): E66.811 - Obesity, class 1 Category: Medical Plan: Patient does understand his BMI is over 30 will work on being more physically active and adapting to better eating habits. Orders: Orders Comprehensive Stephens. Panel Fast Today Z13.1 - Encounter for screening for diabetes mellitus Complete Blood Count no Diff Today Z13.1 - Encounter for screening for diabetes mellitus Medications: Discontinued ciprofloxacin-dexamethasone 0.3-0.1 % Discontinued Reason: Doctor's Order 4 drps otic (ears) BID 7 days 7.5 mL 0RF H60.312 - Diffuse otitis externa, left ear
--- OUTSIDE RECORDS SUMMARY | 2025-03-14 18:00 | XMS_ITS | Encounter Summary ---
Author Organization [facility] Address [address] [place] [phone] Phone Care Team Providers Care Newscast Producer Name Role Phone Unavailable Primary Care Provider Unavailabl e Encounter Details Date Type Department Care Team (Late st Contact Info) Description 07/15/2017 Conversion Encounter [facility] - [address] [id number] Social History Tobacco Use Types Packs/Day Years Used Date Smoking Tobacco: Never Comments:Never smoker Sex and Gender Information Value Date Recorded Sex Assigned at Not on file Legal Sex Male 5:01 PM EDT Gender Identity Not on file Sexual Orientation Not on file documented as of this encounter Plan of Treatment Not on file documented as of this encounter Visit Diagnoses Not on filedocumented in this encounter
--- OUTSIDE RECORDS SUMMARY | 2025-03-14 18:00 | XMS_ITS | Encounter Summary ---
Author Organization [facility] Address [address] [place] [phone] Phone Care Team Providers Care Assistant Professor Of Economics Name Role Phone Unavailable Primary Care Provider Unavailabl e Encounter Details Date Type Department Care Team (Late st Contact Info) Description 09/15/2011 Documentation [facility] [place] [address] [place] [address] Family Medicine, Physician [address], [place] [id number] Social History Tobacco Use Types Packs/Day Years Used Date Smoking Tobacco: Never Assessed Sex and Gender Information Value Date Recorded Sex Assigned at Not on file Legal Sex Male 5:01 PM EDT Gender Identity Not on file Sexual Orientation Not on file documented as of this encounter Plan of Treatment Not on file documented as of this encounter Visit Diagnoses Not on filedocumented in this encounter
--- OUTSIDE RECORDS SUMMARY | 2025-03-14 18:01 | XMS_ITS | Encounter Summary ---
Author Organization [facility] Address [address] [place] [phone] Phone Care Team Providers Care Video And Sound Recorder Name Role Phone Unavailable Primary Care Provider Unavailabl e Encounter Details Date Type Department Care Team (Late st Contact Info) Description 11/07/2015 Documentation [facility] [place] Family Medicine [address] [place] [address] Family Medicine, Physician [address], [place] [phone] Social History Tobacco Use Types Packs/Day Years [...]
--- OUTSIDE RECORDS SUMMARY | 2025-03-14 18:01 | XMS_ITS | Clinical Summary ---
Author Organization [facility] Address [address] [place] [phone] Phone Care Team Providers Care Director Of Counseling Name Role Phone Unavailable Primary Care Provider Unavailabl e Allergies No known active allergies Medications No known medications Active Problems Problem Noted Date Diagnosed Date Asthma 11/15/2009 Immunizations Immunization Administration Dates Next Due DTP 1998,1998,1998 DTaP 5 02/06/2002,09/16/1999 H1N1 10/01/2009 HPV, Quadrivalent 05/01/2013,07/08/2012,04/27/20 12 Hep A, ped/adol 05/29/2014,04/22/2011 Hep B, ped/adol 1998,1998,1998 Hib (PRP-T) 06/16/1999, 8,1998,04/23 IPV 02/06/2002,1998,1998 Influenza Split 10/14/2011 Influenza, injectable, MDCK, preservative free, quadrivalent 12/15/2016 Influenza, injectable, quadrivalent 09/24/2015,1 01/14/2014 Influenza, injectable, quadr ivalent, preservative free 08/31/2013 Influenza, injectable, trivalent 10/01/2009 MMR 02/06/2002,03/10/1999 Meningococcal Conj (Menactra) MCV4P 09/24/2015,0 04/22/2010 OPV 03/10/1999 Tdap 04/22/2010 Varicella 04/19/2008,03/10/1999 Family History Relation Name Status Comments Brother Alive Brother: Alive and well Father Alive Father: Hyperte nsion Mother Alive Mother: Allergi c to percocet Other Family history of *Dental caries, No family history of *CVA/Stroke, Family history of Diabetes mellitus, No family history of *Sudden /CA under 55, Family history of Asthma, No family history of *Heart Disease Sister 1 Alive Sister: Alive a nd well, Alive and well Sister 2 Alive Sister: Alive a nd well, Alive and well Social History Tobacco Use Types Packs/Day Years Used Date Smoking Tobacco: Never Comments:Never smoker Sex and Gender Information Value Date Recorded Sex Assigned at Not on file Legal Sex Male 5:01 PM EDT Gender Identity Not on file Sexual Orientation Not on file Last Filed Vital Signs Vital Sign Reading Time Taken Comments Blood Pressure 114/89 03/17/2019 9:57 AM EDT Pulse 70 03/17/2019 9:57 AM EDT Temperature 36.2 ??C (97.2 ??F) 03/17/2019 9:57 AM ED T Respiratory Rate - - Oxygen Saturation - - Inhaled Oxygen Concentration - - Weight 74.6 kg (164 lb 6 oz) 03/17/2019 9:57 AM EDT Height 166.4 cm (5' 5.5 ) 01/14/2017 12:00 AM ES T Body Mass Index 26.94 01/14/2017 12:00 AM EST Plan of Treatment Health Maintenance Due Date Last Done Comments DTaP,Tdap,and Td Vaccines (7 - Td or Tdap) 04/22/2020 04/22/2010, 02/06/2002, 09/16/1999, Additional history exists Influenza Vaccines (#1) 2024 12/15/19 17, 09/24/2015, 11/13/2014, Additional history exists COVID-19 Vaccine ( season) 2024 Hepatitis B Vaccines Completed 1998, 1998, 1998 HIB Vaccines Completed 06/16/1999, 07/30, 1998, Additional history exists IPV Vaccines Completed 02/06/2002, 02/27, 1998, Additional history exists MMR Vaccines Completed 02/06/2002, 03/10/1999 Varicella Vaccines Completed 04/19/2008, 03/10/1999 HPV Vaccines Completed 05/01/2013, 06/29, 04/27/2012 Hepatitis A Vaccines Completed 05/29/2014, 04/22/20 11 Meningococcal Vaccine Completed 09/24/2015, 010 Men B Vaccine Aged Out No longer elig ible based on patient's age to complete this topic Pneumococcal Vaccine Aged Out No long er eligible based on patient's age to complete this topic Insurance [facility]
== END 2025-03-14 16:35 | disposition home or self-care (01) ==
LOC: HO.HMCH 15:29
PROVIDERS: PCP Physician Assistant; Visit Provider Physician Assistant
DX: G47.33 Obstructive sleep apnea (adult) (pediatric) (principal); J45.909 Unspecified asthma, uncomplicated; E66.811 Obesity, class 1; Z68.31 Body mass index [BMI] 31.0-31.9, adult

== ENCOUNTER → 2025-03-14 15:28 | Outpatient (BNVA) | payer OTHER, SELFPAY | PROVIDERS: PCP Physician Assistant; Visit Provider Physician Assistant | DX: Z00.00 Encounter for general adult medical examination without abnormal findings (principal); G47.33 Obstructive sleep apnea (adult) (pediatric); J45.909 Unspecified asthma, uncomplicated; E66.811 Obesity, class 1; Z68.31 Body mass index [BMI] 31.0-31.9, adult | CPT/HCPCS: 96127; 96160 ==

== ENCOUNTER 2025-09-17 15:46 | Outpatient (AMB) | payer OTHER, SELFPAY ==
--- NOTE | 2025-09-17 16:01 | A.OFFPC_ITS ---
Vital Signs 09/17/25 16:02 Height 5 ft 5 in Weight 185 lb 4 oz BMI 30.8 BP 120/78 Blood Pressure Location Lt brachial Position Sitting Pulse 75 Pulse Source Pulse Oximeter Temp 97.5 F Temp Source Temporal Artery Scan Pulse Oximetry (%) 98 Oxygen Delivery Method Room Air Intake Visit Reasons: f/u asthma/ MICHAEL Intake Note: Patient is here to follow up on MICHAEL, Asthma. 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 Helper: Not Required per policy Accompanied by: Self / Same As Patient Allergies No Known Allergies Allergy (Verified 09/17/25 16:08) Medication List - Last Reconciled 09/17/25 by Venkat Lawrence PA-C albuterol sulfate 90 mcg/actuation 2 puffs inhalation Q8H PRN 30 days CPAP (CPAP Machine/Device) Need for CPAP settings 6-12 cm H2O- full mask type naproxen (Naprosyn) 500 mg PO BID Tobacco use date assessed: 09/17/25 Dental Screening Dental Screen Date: 03/14/25 HPI f/u asthma/ MICHAEL HPI Details Patient is a 25-year-old male here today for follow-up visit Patient has a past medical history significant for asthma and obstructive sleep apnea, obesity. Concern--> The patient reports experiencing lower back pain for the past two and a half weeks. He denies any recent falls, slips, or heavy lifting that could have contributed to the pain, although he did lift totes about a month ago. The pain is primarily felt when sitting and getting up, suggesting a musculoskeletal origin. Obstructive sleep apnea (mild)-> Sleep study in March 2024, which confirmed mild obstructive sleep apnea. He has started CPAP machine on nightly basis and reports good sleep and feeling better in the morning. . Class 1 obesity: Has been able to lose weight since last office visit, today's BMI 30.8, he will work on dietary and lifestyle modifications to reduce his weight. .. Asthma: Reports his asthma has been fairly well controlled with p.r.n. use of his albuterol inhaler . Otherwise has not had to use his maintenance inhaler at all. [facility] Surgical History No pertinent past surgical history Social History Housing: House Alcohol intake: never Patient Tobacco Use Status: Never used Tobacco e-Cigarette/Vaping Use: Never Used Second Hand Smoke Exposure: No service: No Current occupational status: employed Current occupation: [employer] Cognitive needs: No Hearing needs: No Vision needs: No Questionnaire Thrive Questionnaire Date Thrive assessed: 03/07/25 I am a: Patient What is your living situation today?: I have a steady place to live Within the past 12 months, did the food you bought not last and you didn't have the money to get more?: I choose not to answer this question Within the past 12 months, did you worry whether your food would run out before you got money to buy more?: I choose not to answer this question Do you have trouble paying for medicines?: Yes Do you have trouble getting transportation to medical appointments?: No Do you have trouble paying your heating and electricity bill?: I choose not to answer this question Do you have trouble taking care of your child, family member or friend?: I choose not to answer this question Do you have trouble with day-to-day activities such as bathing, preparing meals, shopping, managing finances, etc.?: I choose not to answer this question Are you currently unemployed and looking for a job?: No Are you interested in more education?: Yes Please select the resources that you would like help with: None Currently or been in a relationship where the following occur: No concerns reported THRIVE Score: 0 MARCO-7 AMB Questionnaire MARCO-7 Date MARCO - 7 assessed: 03/14/25 Source: Developed by Drs. Joaquin Lindsay, Adriana Jiang, Manoj Moreira and colleagues, with an educational rigo from [email or web address]. ACT Questionnaire In the past 4 weeks, how much of the time did your asthma keep you from getting as much done at work, school or at home?: None of the time During the past 4 weeks, how often have you had shortness of breath?: Not at all During the past 4 weeks, how often did your asthma symptoms wake you up at night or earlier than usual in the morning?: Not at all During the past 4 weeks, how often have you had to use your rescue inhaler or nebulizer medication?: Not at all How would you rate your asthma control during the past 4 weeks?: Completely controlled ACT Interpretation: Negative Score: 25 Review of Systems Const Denies headache(s) Eyes Denies loss of vision ENT Denies vertigo, Denies dizziness, Denies headache(s) and Denies sore throat Card Denies chest pain, Denies leg edema and Denies lightheadedness Resp Denies cough, Denies hemoptysis and Denies wheezing GI Denies abdominal pain, Denies melena, Denies constipation, Denies diarrhea and Denies vomiting Denies dysuria, Denies urinary frequency and Denies urinary urgency Musc Denies arthralgias, Denies joint swelling, Denies numbness and Denies tingling Neuro Denies Abnormal speech present, Denies behavioral changes, Denies vertigo, Denies dizziness, Denies headache(s), Denies loss of vision, Denies memory loss, Denies numbness and Denies tingling Psych Denies anxiety, Denies behavioral changes, Denies depression, Denies memory loss and Denies panic attacks Cristian/Lymph Denies easy bleeding and Denies easy bruising Aller/Immun Denies wheezing Physical exam (Primary Care) Vital Signs: Last Vital Signs Temp 97.5 F 09/17/25 16:02 Pulse 75 09/17/25 16:02 BP 120/78 09/17/25 16:02 Pulse Ox 98 09/17/25 16:02 Oxygen Delivery Method Room Air 09/17/25 16:02 BMI result Body Mass Index 30.8 BMI Assessment/Plan discussion: High BMI High, discussed plan: lifestyle, weight reduction, dietary and physical activity Tobacco/Smoking Status: Tobacco use Status Tobacco use date assessed 09/17/25 09/17/25 16:07 Patient Tobacco Use Status Never used Tobacco 09/17/25 16:07 e-Cigarette/Vaping Use Never Used 09/17/25 16:07 Thrive Assessment: Date of Thrive Assessment Date Thrive assessed 03/07/25 09/17/25 16:07 Currently or been in a relationship where the following occur: No concerns reported Const General: healthy appearing, no acute distress, alert and awake Nutritional Appearance: well nourished Orientation/consciousness: oriented to person, oriented to place and oriented to time HENMT Ears: TM's normal bilaterally General nose exam: Normal nasal mucous membranes and turbinates present Eyes Conjunctivae: conjunctivae normal Sclerae: sclerae normal Pupils: Equal, round and reactive pupils present Neck Neck: Yes no lymphadenopathy and Yes no JVD Thyroid: Thyroid normal Carotids: no bruits Resp Effort & Inspection: normal respiratory effort and not tachypneic Auscultation: no crackles, no rales, no rhonchi and no wheezes Cardio Rate: regular rate Rhythm: regular rhythm Heart sounds: no murmurs and normal S1 and S2 GI Palpation (GI): Soft to palpation, nontender, no hepatomegaly and no splenomegaly Auscultation: normal bowel sounds Skin General skin exam: no rashes or lesions noted and dry skin Neuro General: oriented to person, oriented to place and oriented to time Cranial nerves: Yes Equal, round and reactive pupils present Speech: No Abnormal speech present Gait exam (Neuro): Normal gait present Motor exam (neuro): no tremor noted Extrem Right upper extremity: full ROM Left upper extremity: full ROM Right lower extremity: full ROM; no edema Left lower extremity: full ROM; no edema Psych Mental Status: mental status grossly normal Speech and movement: Normal speech and movement present Affect: normal affect Attitude: cooperative Thought process: Normal thought process present Office Procedures Flu Questionnaire Does the patient have a severe egg allergy?: No Does the patient have severe life threatening allergies?: No Does the patient have a fever or illness today?: No Has the patient ever had Guillain-Molena Syndrome?: No Has the patient ever had any past reaction to a flu shot?: No Immunizations Fluarix [id number] (PF) 45 mcg (15 mcg x 3)/0.5 mL IM syringe Performing Provider: Venkat Lawrence PA-C [facility] Administered by: Barb Nicole RN on 09/17/25 16:32 Dose Route Admin Location Dispensed Lot Number Expiration Date MTC [employer] 0.5 mL IM Right Deltoid 0.5 mL [id number] 05/28/26 [id number] [employer] VIS Given Date VIS Provided VIS Publication Date 09/17/25 Single Vaccine 24 Eligibility Eligibility Date Funding Source Not [facility] Eligible 09/17/25 Private Coding Level of Care Code Est Pt Level 4 (68931) Diagnoses Mild asthma without complication, unspecified whether persistent J45.909 Asthma complication type: uncomplicated Asthma persistence: unspecified Asthma severity: mild Acute midline low back pain without sciatica M54.50 Back pain laterality: midline Chronicity: acute Sciatica presence: without sciatica Class 1 obesity E66.811 Additional Codes Asthma Control Questionnaire - ACT Interpretation: Negative ([id number]) Assessment & Plan Assessment & Plan (1) Asthma: Code(s): J45.909 - Unspecified asthma, uncomplicated Category: Medical Qualifiers: Asthma complication type: uncomplicated Asthma persistence: unspecified Asthma severity: mild Qualified Code(s): J45.909 - Unspecified asthma, uncomplicated Plan: Patient's asthma has been well controlled, did not need to use any maintenance inhaler. He actually does not have to regularly use his albuterol inhaler. He feels that his asthma is well controlled. (2) Low back pain: Code(s): M54.50 - Low back pain, unspecified Category: Medical Qualifiers: Back pain laterality: midline Chronicity: acute Sciatica presence: without sciatica Qualified Code(s): M54.50 - Low back pain, unspecified Plan: For the patient's lower back pain, it was suggested to monitor the symptoms for a few more weeks before considering further interventions such as x-rays or physical therapy. The patient was advised to use ergonomic supports like a lumbar pillow to alleviate discomfort. (3) Class 1 obesity: Code(s): E66.811 - Obesity, class 1 Category: Medical Plan: Has been able to lose 7 lb since last office visit.. Patient does understand his BMI is over 30 will continue working on better eating habits and being more physically active to reduce his weight. Orders: Orders Influenza [id number] Immunization 09/17/25 Z23 - Encounter for immunization
[2025-09-17 16:02] VITALS: BP 120/78; PULSE 75; TEMP 36.4; O2SAT 98; BMI 30.8
--- OUTSIDE RECORDS SUMMARY | 2025-09-17 20:05 | XMS_ITS | Encounter Summary ---
Author Organization [facility] Address [address] [place] [id number] Phone Care Team Providers Care Plasterer Helper Name Role Phone Unavailable Primary Care Provider Unavailabl e Encounter Details Date Type Department Care Team (Late st Contact Info) Description 09/15/2011 Documentation [facility] Family Medicine [address] [place] [address] Family Medicine, Physician [address], [place] [phone] Social History Tobacco Use Types Packs/Day Years [...]
--- OUTSIDE RECORDS SUMMARY | 2025-09-17 20:05 | XMS_ITS | Encounter Summary ---
Author Organization [facility] Address [address] [place] [phone] Phone Care Team Providers Care Link Knitting Machine Operator Name Role Phone Unavailable Primary Care Provider Unavailabl e Encounter Details Date Type Department Care Team (Late st Contact Info) Description 11/07/2015 Documentation [facility] [place] [address] [place] [address] Family Medicine, Physician [address], [place] [phone] Social History Tobacco Use Types Packs/Day Years [...]
--- OUTSIDE RECORDS SUMMARY | 2025-09-17 20:05 | XMS_ITS | Encounter Summary ---
Author Organization [facility] Address [address] [place] [phone] Phone Care Team Providers Care Flight Service Agent Name Role Phone Unavailable Primary Care Provider Unavailabl e Encounter Details Date Type Department Care Team (Late st Contact Info) Description 07/15/2017 Conversion Encounter [facility] - [address] [address] Social History Tobacco Use Types Packs/Day Years [...]
--- OUTSIDE RECORDS SUMMARY | 2025-09-17 20:05 | XMS_ITS | Clinical Summary ---
Author Organization [facility] Address [address] [place] [phone] Phone Care Team Providers Care Public Safety Teacher Name Role Phone Unavailable Primary Care Provider [...] Diabetes mellitus, No family history of *Sudden /VT under 55, Family history of Asthma, No [...] 68 03/17/2019 9:57 AM EDT Temperature 36.2 C (97.2 F) 03/17/2019 9:57 AM EDT Respiratory Rate - - Oxygen Saturation - [...] 09/16/1999, Additional history exists Influenza Vaccines (#1) 2025 12/15/19 17, 09/24/2015, 11/13/2014, Additional history exists COVID-19 Vaccine ( - season) 2025 Hepatitis B Vaccines Completed 1998, 1998, 1998 [...] patient's age to complete this topic Insurance [facility]
--- OUTSIDE RECORDS SUMMARY | 2025-09-17 20:05 | XMS_ITS ---
Author Name [facility] Organization Unknown Care Team Organization Name Specialty Phone Email Start Date End Da danielle [facility] THEODORE [facility]OS Primary Care 10/06/2022 07/17/20 24
== END 2025-09-17 16:34 | disposition home or self-care (01) ==
LOC: HO.HMCH 15:47
PROVIDERS: PCP Physician Assistant; Visit Provider Physician Assistant
DX: Z23 Encounter for immunization (principal)

== ENCOUNTER → 2025-09-17 15:46 | Outpatient (BNVA) | payer OTHER, SELFPAY | PROVIDERS: PCP Physician Assistant; Visit Provider Physician Assistant | DX: G47.33 Obstructive sleep apnea (adult) (pediatric) (principal); J45.909 Unspecified asthma, uncomplicated; E66.811 Obesity, class 1; M54.50 Low back pain, unspecified; Z23 Encounter for immunization; Z68.30 Body mass index [BMI] 30.0-30.9, adult | CPT/HCPCS: 90471; 90656; 96160 ==